=== PATIENT | female | born 1975 | race Caucasian/White ===

== ENCOUNTER 2018-09-06 06:50 | Day surgery (SDC) | payer BC ==
[~2018-09-06] VITALS: Ht 170.2 cm; Wt 113.8 kg
[~2018-09-06 06:50] MED LIST: GLUCOPHAGE500 MG PO; LISINOPRIL20 MG PO; PREVIFEM1 EACH PO; SYNTHROID75 MCG PO
--- NOTE | 2018-09-06 09:04 | NUR ---
09/06/18 0904 Fatmata Ward 0900 PATIENT ARRIVES TO PACU ORAL AIRWAY IN PLACE, OCCASIONAL COUGH. RESP EVEN AND UNLABORED, MASK AT 10 LITERS, DECREASED TO 6 LITERS. 0903 PATIENT RESTING WITH EYES CLOSED. PUSHES ORAL AIRWAY OUT OF MOUTH. RESP EVEN AND UNLABORED, MASK CONTINUED AT [address] BOUDREAUX AT BEDSIDE.
--- NOTE | 2018-09-06 09:35 | NUR ---
PT IS BACK TO DS FROM PACU. SHE IS REPORTING PAIN 5/10, HER O2 SATS ARE SITTING AROUND 92-93%, WILL WAIT TO GIVE NARCOTICS UNTIL BREATHING BETTER. FRIEND IS AT THE BEDSIDE. CALL LIGHT WITHIN REACH. TOLERATING SIPS OF WATER. WATER ON BEDSIDE TABLE. NO ADDITIONAL NEEDS AT THIS TIME. WILL CONTINUE TO MONITOR.
[2018-09-06] MEDS ORDERED: HYDROCODONE-ACE15 M3 PO (09:48)
--- NOTE | 2018-09-06 10:39 | NUR ---
PT IS REPORTING THAT HER PAIN IS IMPROVING WITH JUST THE COLD WATER. SHE IS AGREEABLE TO TRYING SOME JELLO. FRIEND IS STILL AT THE BEDSIDE. CALL LIGHT WITHIN REACH. NO ADDITIONAL NEEDS AT THIS TIME. WILL CONTINUE TO MONITOR.
--- NOTE | 2018-09-06 11:25 | NUR ---
LE 1110: PT WOULD LIKE TO GET UP TO USE THE RESTROOM. SHE IS ABLE TO AMBULATE WITH STANDBY ASSIST. SHE REPORTS FEELING LIKE SHE WAS ABLE TO EMPTY HER BLADDER. PT IS EDUCATED ON HOW BEST TO DRESS HERSELF. LE 1115: PT IS GIVEN VERBAL AND WRITTEN DC INSTRUCTIONS WITH HER FRIEND PRESENT. BOTH VERBALIZE UNDERSTANDING. PT IS TAKEN TO VEHICLE VIA WC, SHE IS ABLE TO TRANSFER HERSELF FROM WC TO VEHICLE.
--- NOTE | 2018-09-06 12:06 | OR ---
[facility] [address], [place] [address] Signed DATE OF OPERATION: 09/06/2018 SURGEON: Kj Boudreaux MD PREOPERATIVE DIAGNOSES: 1. Chronic tonsillitis. 2. Tonsil lithiasis. POSTOPERATIVE DIAGNOSES: 1. Chronic tonsillitis. 2. Tonsil lithiasis. PROCEDURE PERFORMED: Tonsillectomy. ANESTHESIA: General orotracheal; Anival MAN. PREOPERATIVE HISTORY: Belkis is a 42-year-old lady with chronic tonsillitis, tonsillar hypertrophy, tonsil lithiasis, taken to the operating room for the above-mentioned procedures. OPERATIVE PROCEDURE AND FINDINGS: After informed consent, the patient was taken to the operating room, placed in supine position where general orotracheal anesthesia was induced. The patient and procedure were verified. The patient was repositioned. McIvor mouth gag placed into suspension. Headlight exam of the pharynx showed moderately hypertrophic cryptic tonsils. The left tonsil was grasped with a tenaculum, retracted medially, and removed from its fossa with mucosal sparing incisions with Coblation. The field was dry after the procedure. Same procedure on the right tonsil. Tonsils were sent to Pathology. Mouth gag was released for several minutes. Reinspection showed no bleeding points. The pharynx was suctioned clear of blood secretions. Mouth gag was removed. The patient was awakened, extubated, transported to recovery room in good condition. No complications. BLOOD LOSS: Minimal. SPECIMEN: To Pathology. Electronically Signed By: KJ BOUDREAUX MD 09/06/18 1206 PATIENT NAME: BELKIS FRAGOSO OPERATIVE REPORT DATE OF : 79 REPORT #: [id number] PHYSICIAN: KJ BOUDREAUX MD PCP: JANET STEVENSON PAC REPORT IS CONFIDENTIAL AND NOT TO BE RELEASED WITHOUT AUTHORIZATION [address] [address] Signed DRAINS: No drains. Kj Boudreaux MD GC/MODL /[id number] Copies: ~ Electronically Signed By: KJ BOUDREAUX MD 09/06/18 1206 PATIENT NAME: BELKIS FRAGOSO OPERATIVE REPORT DATE OF : 79 REPORT #: [id number] PHYSICIAN: KJ BOUDREAUX MD PCP: JANET STEVENSON PAC REPORT IS CONFIDENTIAL AND NOT TO BE RELEASED WITHOUT AUTHORIZATION
== END 2018-09-06 11:16 | disposition home or self-care (01) ==
LOC: DS 06:50 → OPS 06:50 → DS 09:15 → OPS 11:16
PROVIDERS: Otolaryngology
PROC: 0CTPXZZ Resection of Tonsils, External Approach (ICD-10-PCS; principal; 2018-09-06 09:15)
DX: J35.01 Chronic tonsillitis (principal); I10 Essential (primary) hypertension; E03.9 Hypothyroidism, unspecified; F41.9 Anxiety disorder, unspecified; E66.01 Morbid (severe) obesity due to excess calories; Z79.899 Other long term (current) drug therapy; Z79.84 Long term (current) use of oral hypoglycemic drugs; Z68.39 Body mass index [BMI] 39.0-39.9, adult
CPT/HCPCS: 00170; 84703; 93005; 93010; J1100; J1885; J2250; J2405; J2704; J2765; J3010; J7120